=== PATIENT | female | born 1995 | race Two or more races ===

== ENCOUNTER 2024-12-31 09:10 | Emergency (ER) | payer OTHER ==
[~2024-12-31] VITALS: Ht 170.2 cm; Wt 129.3 kg
[2024-12-31] MEDS ORDERED: BISOPROLOL FUMAR5 GM MC (09:16)
[2024-12-31] MEDS ORDERED: ACETAMINOPHEN 650 MG SUPP.RECT RECTAL ONE (09:45)
[2024-12-31] MEDS ORDERED: 0.9 % SODIUM CHLORIDE 1,000 ML IV SCH (09:45)
[2024-12-31 10:01] LABS: BASO % 0.4 % (0.1-1.2); EOS # 0.04 (0.04-0.54); EOS % 0.6 % (0.7-7.0); LYMPH # 1.84 (1.18-3.74); LYMPH % 26.2 % (19.3-53.1); MEAN PLATELET VOLUME 9.90 fl (9.4-12.4); MONO # 0.47 (0.24-0.82); MONO % 6.7 % (4.7-12.5); NEUT # 4.62 (1.56-6.13); NEUT % 65.8 % (34.0-71.1); RED CELL DISTRIBUTION WIDTH 12.0 % (11.6-14.4)
[2024-12-31 11:02] LABS: BUN CREA RATIO 11.0 (7.0-25.0); CREATININE SERUM 0.8 mg/dL (0.55-1.02); GFR 84.8; GLUCOSE FASTING 95.0 mg/dL (65-100); OSMOLALITY SERUM 282.0 MOSM/KG (275-295)
== END 2024-12-31 15:59 | disposition home or self-care (01) ==
LOC: ER 09:10
PROVIDERS: General Practice
DX: D64.89 Other specified anemias (principal); I10 Essential (primary) hypertension; T83.32XA Displacement of intrauterine contraceptive device, initial encounter